=== PATIENT | male | born 1950 | race Hispanic/Latino ===

== ENCOUNTER 2023-04-04 23:31 | Emergency (ER) | payer OTHER ==
[2023-04-05 00:38] LABS: Absolute Lymphocytes (CBC) 1.7 K/uL (0.7-4.9); Hematocrit 37.5 % (39.6-49.0); MCV 98.1 fL (80-100); MPV 6.8 fL (7.6-11.3); Platelets 263 thou/uL (152-406); RBC Red Blood Cell Count 3.82 M/uL (4.33-5.43)
[2023-04-05 00:44] LABS: Specific Gravity 1.007 (1.005-1.030); Urine Bacteria None Seen /HPF (<20); Urine Bilirubin NEGATIVE (Negative); Urine Blood 1+ (Negative); Urine Clarity Clear (Clear); Urine Color Yellow (Yellow); Urine Glucose NEGATIVE (Negative); Urine Mucus Slight /HPF (None Seen); Urine Protein NEGATIVE (Negative); Urine RBC <5 /HPF (None Seen); Urine Urobilinogen Normal (Normal); Urine pH 5.5 (5.0-7.0)
[2023-04-05 00:55] LABS: Potassium 4.5 mEq/L (3.5-5.1)
[2023-04-05] MEDS ORDERED: NA CHLORIDE 0.9% 50 ML ONE (01:21)
[2023-04-05] MEDS ORDERED: CEFTRIAXONE 1000 MG/VIAL ONE (01:21)
--- NOTE | 2023-04-05 02:41 | ER ---
Nurse's Notes [facility] Name: Ari Stein Age: 72 yrs Sex: Male : 1950 Arrival Date: 04/04/2023 Time: 23:31 Bed 11 Private MD: Diagnosis: Retention of urine, unspecified;Kidney Stone/ Calculus in bladder;Disorder of prostate, unspecified Presentation: 04/04 23:55 Chief complaint: Patient states: urinary retention onset today. Pt states that the last cm10 time he was able to urinate was this morning. Pt states that he cannot sit due to the pain. Coronavirus screen: Vaccine status: Patient reports receiving the 2nd dose of the covid vaccine. Client denies travel out of the [place] in the last 14 days. Ebola Screen: Patient denies travel to an Ebola-affected area in the 21 days before illness onset. No symptoms or risks identified at this time. Initial Sepsis Screen: Does the patient meet any 2 criteria? No. Patient's initial sepsis screen is negative. Does the patient have a suspected source of infection? No. Patient's initial sepsis screen is negative. Risk Assessment: Do you want to hurt yourself or someone else? Patient reports no desire to harm self or others. Onset of symptoms was April 04, 2023. 23:55 Method Of Arrival: Ambulatory cm10 23:55 Acuity: JOSE DAVID 3 cm10 Triage Assessment: 23:57 General: Appears in no apparent distress. uncomfortable, Behavior is calm, cooperative. cm10 Pain: Complains of pain in suprapubic area. Neuro: No deficits noted. Level of Consciousness is awake, alert, obeys commands, Oriented to person, place, time, situation. Respiratory: No deficits noted. Airway is patent Respiratory effort is even, unlabored. : Reports inability to void, since this morning pain in suprapubic area. Historical: - Allergies: 23:57 No Known Allergies; cm10 - PMHx: 23:57 Diabetes mellitus; Glaucoma; High cholesterol; cm10 - PSHx: 23:57 Appendectomy; cm10 - Immunization history:: Adult Immunizations up to date. - Social history:: Smoking status: Patient denies any tobacco usage or history of. Screenin/23 02:10 [facility] ED Fall Risk Assessment (Adult) History of falling in the last 3 months, cm10 including since admission No falls in past 3 months (0 pts) Confusion or Disorientation No (0 pts) Intoxicated or Sedated No (0 pts) Impaired Gait No (0 pts) Mobility Assist Device Used No (0 pt) Altered Elimination Yes (1 pt) Score/Fall Risk Level 0 - 2 = Low Risk Oriented to surroundings, Maintained a safe environment, Hourly rounding (assess needs \T\ fall precautionary measures) done. Abuse screen: Denies threats or abuse. Denies injuries from another. Nutritional screening: No deficits noted. Tuberculosis screening: No symptoms or risk factors identified. Assessment: 02:11 Reassessment: Patient and/or family updated on plan of care and expected duration. Pain cm10 level reassessed. Patient is alert, oriented x 3, equal unlabored respirations, skin warm/dry/pink. Patient states feeling better. Patient states symptoms have improved. 03:52 Reassessment: Patient denies pain at this time. Patient states feeling better. Patient kl states symptoms have improved. Vital Signs: 04/04 23:55 BP 160 / 112; Pulse 98; Resp 18 S; Temp 97.4; Pulse Ox 98% on R/A; Weight 86.18 kg; cm10 Height 5 ft. 2 in. ; Pain 8/10; 04/05 03:52 BP 149 / 92; Pulse 85; Resp 16; Pulse Ox 96% on R/A; kl 04/04 23:55 Body Mass Index 33.67 (86.18 kg, 160 cm) cm10 04/04 23:55 Pain Scale: Adult cm10 ED Course: 04/04 23:33 Patient arrived in ED. [id number] 23:39 Isaias Mcrae PA is PHCP. cp 23:39 Ronan Bolaños DO is Attending Physician. cp 23:57 Triage completed. cm10 23:58 Arm band placed on Patient placed in an exam room, on a stretcher. cm10 04/05 00:39 Inserted saline lock: 20 gauge in right forearm, using aseptic technique. Blood kl collected. 01:59 CT Stone Protocol In Process Unspecified. EDMS 02:10 Patient has correct armband on for positive identification. Bed in low position. Call cm10 light in reach. Provided Education on: ER Process and procedures. 02:39 Esdras Marte MD is Referral Physician. cp 03:52 No provider procedures requiring assistance completed. Conley cath inserted, using yaw sterile technique, 16 Fr., by wi, balloon inflated, to gravity drainage, urine specimen collected. returned clear yellow urine. Patient tolerated well. changed to leg bag total of 1900 cc urine output. IV discontinued, intact, bleeding controlled, No redness/swelling at site. Pressure dressing applied. Administered Medications: 01:13 Drug: Rocephin IV 1 grams IV at calculated rate once; Given slow IV push per pharmacy ap3 instructions Route: IV; Rate: calculated rate; Site: right antecubital; Output: 02:10 Urine: 1225ml (Conley); Total: 1225ml. cm10 Outcome: 02:41 Discharge ordered by . capri 03:53 Discharged to home ambulatory, yaw 03:53 Condition: stable 03:53 Discharge instructions given to patient, Instructed on discharge instructions, follow up and referral plans. medication usage, conley care Demonstrated understanding of instructions, follow-up care, medications, Prescriptions given X 1, 03:54 Patient left the ED. Signatures: Dispatcher [employer] EDMS Maggy Reeves RN RN Isaias Pimentel PA PA cp Prokisch, Amanda, RN RN ap3 Maxine Scott Clarissa, RN RN cm10
--- NOTE | 2023-04-05 02:41 | EDPHYS ---
Physician Documentation [facility] Name: Ari Stein Age: 72 yrs Sex: Male : 1950 Arrival Date: 04/04/2023 Time: 23:31 Bed 11 Private MD: ED Physician Ronan Bolaños HPI: 04/05 00:20 This 72 yrs old Male presents to ER via Ambulatory with complaints of Urinary cp Retention. 00:20 The patient presents with urinary symptoms, retention, unable to void. Onset: The cp symptoms/episode began/occurred today. Associated signs and symptoms: Pertinent positives: abdominal pain, Pertinent negatives: fever, vomiting. Severity of symptoms: in the emergency department the symptoms are unchanged. Historical: - Allergies: 04/04 23:57 No Known Allergies; cm10 - PMHx: 23:57 Diabetes mellitus; Glaucoma; High cholesterol; cm10 - PSHx: 23:57 Appendectomy; cm10 - Immunization history:: Adult Immunizations up to date. - Social history:: Smoking status: Patient denies any tobacco usage or history of. ROS: 04/05 00:25 Constitutional: Negative for body aches, chills, fever, cp 00:25 Eyes: Negative for injury, pain, redness, and discharge, cp 00:25 Cardiovascular: Negative for chest pain, palpitations, 00:25 Respiratory: Negative for cough, shortness of breath, wheezing, 00:25 Abdomen/GI: Positive for abdominal pain, Negative for vomiting, diarrhea, constipation, 00:25 Back: Negative for pain at rest, pain with movement, 00:25 : Positive for difficulty urinating, Negative for hematuria, testicular pain 00:25 Neuro: Negative for altered mental status, headache, weakness, 00:25 All other systems are negative, Exam: 00:30 Constitutional: The patient appears in no acute distress, alert, awake, cp non-diaphoretic, non-toxic, well developed, well nourished, obese, uncomfortable, 00:30 Head/Face: Normocephalic, atraumatic. cp 00:30 Eyes: Periorbital structures: appear normal, Conjunctiva: normal, no exudate, no injection, Sclera: no appreciated abnormality, Lids and lashes: appear normal, bilaterally, 00:30 ENT: External ear(s): are unremarkable, Nose: is normal, Mouth: Lips: moist, Oral mucosa: pink and intact, moist, Posterior pharynx: is normal, airway is patent, no erythema, no exudate, 00:30 Chest/axilla: Inspection: normal, 00:30 Cardiovascular: Rate: normal, 00:30 Respiratory: the patient does not display signs of respiratory distress, Respirations: normal, no use of accessory muscles, no retractions, labored breathing, is not present, 00:30 Abdomen/GI: Inspection: distension, that is mild, in the lower abdomen, Bowel sounds: active, all quadrants, Palpation: soft, in all quadrants, moderate abdominal tenderness, in the suprapubic area, 00:30 Back: CVA tenderness, is absent, 00:30 Neuro: Orientation: to person, place \T\ time. Mentation: is normal, Motor: moves all fours, strength is normal, Vital Signs: 04/04 23:55 BP 160 / 112; Pulse 98; Resp 18 S; Temp 97.4; Pulse Ox 98% on R/A; Weight 86.18 kg; cm10 Height 5 ft. 2 in. ; Pain 8/10; 04/05 03:52 BP 149 / 92; Pulse 85; Resp 16; Pulse Ox 96% on R/A; kl 04/04 23:55 Body Mass Index 33.67 (86.18 kg, 160 cm) cm10 04/04 23:55 Pain Scale: Adult cm10 MDM: 04/04 23:58 Patient medically screened. cp 04/05 01:00 Differential diagnosis: UTI, urinary retention, prostatitis, kidney stone. cp 02:40 Data reviewed: vital signs, nurses notes, lab test result(s), radiologic studies, CT cp scan. 02:40 Consideration of Admission/Observation Escalation of care including cp admission/observation considered. I considered the following discharge prescriptions or medication management in the emergency department Medications were administered in the Emergency Department. See MAR. Care significantly affected by the following chronic conditions: Diabetes. Counseling: I had a detailed discussion with the patient and/or guardian regarding the historical points, exam findings, and any diagnostic results supporting the discharge/admit diagnosis, lab results, radiology results, the need for outpatient follow up, for definitive care, a urologist, to return to the emergency department if symptoms worsen or persist or if there are any questions or concerns that arise at home. Response to treatment: the patient's symptoms have markedly improved after treatment, and as a result, I will discharge patient. 04/05 00:00 Order name: CBC with Diff; Complete Time: 00:57 cp 04/05 00:57 Interpretation: Normal except: RBC 3.82; HGB 13.0; HCT 37.5; MPV 6.8. cp 04/05 00:00 Order name: BMP; Complete Time: 00:57 cp 04/05 00:57 Interpretation: Normal except: NA 135; GLUC 161; GFR 89. cp 04/05 00:21 Order name: Urinalysis w/ reflexes; Complete Time: 00:57 kl 04/05 00:57 Interpretation: Normal except: UBLD 1+. cp 04/05 00:58 Order name: CT Stone Protocol cp 04/04 23:59 Order name: Barksdale; Complete Time: 00:20 cp 04/05 00:00 Order name: IV; Complete Time: 00:39 cp Administered Medications: 01:13 Drug: Rocephin IV 1 grams IV at calculated rate once; Given slow IV push per pharmacy ap3 instructions Route: IV; Rate: calculated rate; Site: right antecubital; Disposition: 04/06 02:12 I was immediately available on-site in the Emergency Department for consultation in the ms3 care of the patient. Disposition Summary: 04/05/23 02:41 Discharge Ordered Notes: Location: Home cp Problem: new cp Symptoms: have improved cp Condition: Stable cp Diagnosis - Retention of urine, unspecified cp - Kidney Stone/ Calculus in bladder cp - Disorder of prostate, unspecified cp Followup: cp - With: Esdras Marte MD - When: 1 week - Reason: Recheck today's complaints Discharge Instructions: - Discharge Summary Sheet cp - Acute Urinary Retention, Male cp - Bladder Stone cp Forms: - Medication Reconciliation Form cp - Thank You Letter cp - Antibiotic Education cp - Prescription Opioid Use cp - Patient Portal Instructions cp - Leadership Thank You Letter cp Prescriptions: - Cipro 500 mg Oral Tablet - take 1 tablet ORAL route every 12 hours for 7 days; 14 tablet; Refills: 0, cp Product Selection Permitted Signatures: Dispatcher [employer] EDMS Isaias Mcrae PA PA cp Prokisch, Amanda, RN RN ap3 Ronan Bolaños DO DO ms3 Jeri Watkins, RN RN cm10 Corrections: (The following items were deleted from the chart) 04/05 00:20 04/04 23:59 Bladder Scanner ordered. cp kl
[2023-04-05 04:18] VITALS: TEMP 97.4
[2023-04-05 04:19] VITALS: BP 149/92; O2SAT 96
--- NOTE | 2023-04-07 14:33 | RAD REPORT ---
EXAM DESCRIPTION: CT Abdomen and Pelvis Without Intravenous Contrast CLINICAL HISTORY: The patient is 72 years old and is Male; urine retention TECHNIQUE: Axial computed tomography images of the abdomen and pelvis without intravenous contrast. Sagittal and coronal reformatted images were created and reviewed. This CT exam was performed usi ng one or more of the following dose reduction techniques: automated exposure control, adjustment o f the mA and/or kV according to patient size, and/or use of iterative reconstruction technique. COMPARISON: No relevant prior studies available. FINDINGS: Lung bases: Unremarkable. No mass. No consolidation. Mediastinum: Small hiatal hernia. ABDOMEN: Liver: Diffuse hepatic steatosis. Gallbladder and bile ducts: Unremarkable. No calcified stones. No ductal dilation. Pancreas: Unremarkable. No ductal dilation. Spleen: Unremarkable. No splenomegaly. Adrenals: Unremarkable. No mass. Kidneys and ureters: Mild bilateral hydroureteronephrosis and perinephric stranding. Stomach and bowel: Unremarkable. No obstruction. No mucosal thickening. PELVIS: Appendix: No findings to suggest acute appendicitis. Bladder: 7 mm stone in the bladder near the left UVJ. Diffuse bladder wall thickening. Barksdale catheter in the bladder. Reproductive: Prostate is enlarged. Small bilateral hydroceles. ABDOMEN and PELVIS: Intraperitoneal space: Unremarkable. No free air. No significant fluid collection. Bones/joints: Disc space narrowing with degenerative endplate changes in the spine. No acute fracture. No dislocation. Soft tissues: Unremarkable. Vasculature: Scattered atherosclerotic vascular calcifications. No abdominal aortic aneurysm. Lymph nodes: Unremarkable. No enlarged lymph nodes. IMPRESSION: 1. Mild bilateral hydroureteronephrosis and perinephric stranding. 2. 7 mm stone in the bladder near the left UVJ. 3. Diffuse bladder wall thickening. Correlate with any concern for cystitis, chronic bladder outl et obstruction, or other infiltrative process. 4. Prostate is enlarged. 5. Additional non-emergent findings as above. Electronically signed by: Tyrone Moyer MD 04/05/2023 2:28 AM CDT Due to temporary technical issues with the PACS/Fluency reporting system, reports are being signed by the in house radiologist without review as a courtesy to ensure prompt reporting. The interpreting r adiologist is fully responsible for the content of the report.
== END 2023-04-05 03:54 | disposition home or self-care (01) ==
LOC: ER 23:31
DX: N20.0 Calculus of kidney (principal); N21.0 Calculus in bladder; N42.9 Disorder of prostate, unspecified; E11.9 Type 2 diabetes mellitus without complications
CPT/HCPCS: 85025; 81001; 80048; 36415; 76377; 74176; 51702; 96374; 99285; J0696